=== PATIENT | male | born 1945 | race Caucasian/White ===

== ENCOUNTER 2021-11-23 10:10 | Inpatient (IN) | payer MEDICARE ==
[2021-11-23] MEDS ORDERED: traMADol HCl 50 MG TAB PO PRN (20:41)
[2021-11-23] MEDS ORDERED: Cepastat Lozenges 1 LOZ PO PRN (20:43)
[2021-11-23] MEDS ORDERED: Promethazine HCl 25 MG SUPP PR PRN (20:43)
[2021-11-23] MEDS ORDERED: Senokot S 8.6-50 MG TAB PO PRN (20:43)
[2021-11-23] MEDS ORDERED: Bisacodyl 10 MG SUPP PR PRN (20:43)
[2021-11-23] MEDS ORDERED: Bisacodyl 5 MG TAB PO PRN (20:43)
[2021-11-23] MEDS ORDERED: Ondansetron PF 4 MG/2 ML Vial IVP PRN (20:43)
[2021-11-23] MEDS ORDERED: Loperamide HCl 2 MG CAP PO PRN ×2 (20:43)
[2021-11-23] MEDS ORDERED: Artificial Tear Sol 15 ML BOT EA EYE PRN (20:43)
[2021-11-23] MEDS ORDERED: Guaifenesin DM 100-10/5 ML UDCUP PO PRN (20:43)
[2021-11-23] MEDS ORDERED: Ondansetron ODT 4 MG TAB PO PRN (20:43)
[2021-11-23] MEDS ORDERED: Calcium Carbonate 500 MG ChewTAB PO PRN (20:43)
[2021-11-23] MEDS ORDERED: Acetaminophen 325 MG TAB PO PRN (20:43)
[2021-11-23] MEDS ORDERED: Benzonatate 100 MG CAP PO PRN (20:43)
[2021-11-23] MEDS ORDERED: Acetaminophen 650 MG Suppository PR PRN (20:43)
[2021-11-23] MEDS ORDERED: Senokot S 8.6-50 MG TAB PO SCH (21:00)
[2021-11-23] MEDS: Rosuvastatin 10 MG TAB PO SCH (21:15)
[2021-11-23] MEDS: Valsartan 80 MG TAB PO SCH (21:15)
[2021-11-23] MEDS ORDERED: Ferrous Sulfate 325 MG TAB PO SCH (21:15)
[2021-11-23] MEDS: Donepezil HCl 10 MG TAB PO SCH (21:15)
[2021-11-23] MEDS: Famotidine 20 MG TAB PO SCH (21:15)
[2021-11-23] MEDS: Lisinopril 10 MG TAB PO SCH (21:15)
[2021-11-23] MEDS: traMADol HCl 50 MG TAB PO PRN (21:36)
[2021-11-24] MEDS: Levothyroxine Sodium 50 MCG TAB PO SCH (05:49)
[2021-11-24 06:01] LABS: #Basophils 0.1 thou/uL (0.0-0.2); #Eosinphils 0.6 thou/uL (0.0-0.7); #Lymphocytes 1.1 thou/uL (1.20-3.40); #Monocytes 0.6 thou/uL (0.11-0.59); #Neutrophils 5.8 thou/uL (1.40-6.50); %Basophils 0.6 % (0.0-1.0); %Eosinophils 6.9 % (0.0-10.0); %Lymphocytes 13.8 % (21.0-51.0); %Monocytes 7.5 % (0.0-10.0); %Neutrophils 71.2 % (42.0-75.0); Mean Corpuscular HGB CONC 30.1 g/dL (32.0-36.0); Mean Corpuscular Hemoglobin 29.3 pg (27.0-31.0); Mean Corpuscular Volume 97.4 fL (78.0-98.0); Mean Platelet Volume 7.1 fL (7.4-10.4); Platelet Count 558 thou/uL (130-400); RBC Distribution Width 13.8 % (11.5-14.5); Red Blood Cell (RBC) Count 2.72 mill/uL (4.70-6.10); White Blood Cell (WBC) Count 8.2 thou/uL (4.8-10.8)
[2021-11-24 06:15] LABS: ALT (SGPT) 257 U/L (8-55); AST (SGOT) 206 U/L (5-34); Alkaline Phosphatase 598 U/L (40-110); Anion Gap 13 mmol/L (10-20); BUN (Urea Nitrogen) 11 mg/dL (8.4-25.7); Bilirubin, Total 1.5 mg/dL (0.2-1.2); Calc. Creatinine Clearance 122 mL/min (70-130); Calcium 8.5 mg/dL (7.8-10.44); Carbon Dioxide 25 mmol/L (23-31); Chloride 105 mmol/L (98-107); Globulin 2.3 g/dL (2.4-3.5); Glucose 97 mg/dL (83-110); Potassium 3.4 mmol/L (3.5-5.1); Protein, Total 5.3 g/dL (5.8-8.1); Sodium 140 mmol/L (136-145)
[2021-11-24] MEDS: Aspirin 325 MG TAB PO SCH (08:39)
[2021-11-24] MEDS: Ascorbic Acid 500 mg Chewable Tablet PO SCH ×2 (08:39→17:45)
[2021-11-24] MEDS: Famotidine 20 MG TAB PO SCH ×2 (08:39→20:48)
[2021-11-24] MEDS: Donepezil HCl 10 MG TAB PO SCH (08:39)
[2021-11-24] MEDS: Folic Acid 1 MG TAB PO SCH (08:40)
[2021-11-24] MEDS: Ferrous Sulfate 325 MG TAB PO SCH ×2 (08:40→17:45)
[2021-11-24] MEDS: Escitalopram Oxalate 10 mg Tablet PO SCH (08:40)
[2021-11-24] MEDS: Lisinopril 10 MG TAB PO SCH ×2 (08:43→20:47)
[2021-11-24] MEDS: Enoxaparin Sodium 40 MG/0.4 ML SYRINGE SC SCH (10:08)
[2021-11-24] MEDS: Polyethylene Glycol 3350 17 GM Packet PO SCH (10:09)
[2021-11-24] MEDS: Donepezil HCl 5 MG TAB PO SCH (20:48)
[2021-11-24] MEDS: Rosuvastatin 10 MG TAB PO SCH (20:48)
[2021-11-24] MEDS: traMADol HCl 50 MG TAB PO PRN (20:49)
[2021-11-24] MEDS: Valsartan 80 MG TAB PO SCH (20:49)
[2021-11-25] MEDS: Levothyroxine Sodium 50 MCG TAB PO SCH (05:41)
[2021-11-25] MEDS ORDERED: Escitalopram Oxalate 10 mg Tablet ONE (07:40)
[2021-11-25] MEDS: Ferrous Sulfate 325 MG TAB PO SCH ×2 (08:11→16:51)
[2021-11-25] MEDS: Ascorbic Acid 500 mg Chewable Tablet PO SCH ×2 (08:11→16:51)
[2021-11-25] MEDS: Donepezil HCl 5 MG TAB PO SCH ×2 (08:11→21:04)
[2021-11-25] MEDS: Aspirin 325 MG TAB PO SCH (08:11)
[2021-11-25] MEDS: Enoxaparin Sodium 40 MG/0.4 ML SYRINGE SC SCH (08:12)
[2021-11-25] MEDS: Escitalopram Oxalate 10 mg Tablet PO SCH (08:12)
[2021-11-25] MEDS: Famotidine 20 MG TAB PO SCH ×2 (08:12→21:05)
[2021-11-25] MEDS: Folic Acid 1 MG TAB PO SCH (08:12)
[2021-11-25] MEDS: Lisinopril 10 MG TAB PO SCH ×2 (08:13→21:04)
[2021-11-25] MEDS: Polyethylene Glycol 3350 17 GM Packet PO SCH (08:13)
[2021-11-25] MEDS: Rosuvastatin 10 MG TAB PO SCH (21:05)
[2021-11-25] MEDS: Valsartan 80 MG TAB PO SCH (21:08)
[2021-11-25 22:50] LABS: SARS-CoV-2 PCR by NAA Not Detected (NotDetected)
[2021-11-26] MEDS: traMADol HCl 50 MG TAB PO PRN (03:20)
[2021-11-26] MEDS: Levothyroxine Sodium 50 MCG TAB PO SCH (05:32)
[2021-11-26] MEDS: Polyethylene Glycol 3350 17 GM Packet PO SCH (08:05)
[2021-11-26] MEDS: Enoxaparin Sodium 40 MG/0.4 ML SYRINGE SC SCH (08:05)
[2021-11-26] MEDS: Ascorbic Acid 500 mg Chewable Tablet PO SCH ×2 (08:06→16:49)
[2021-11-26] MEDS: Lisinopril 10 MG TAB PO SCH ×2 (08:06→19:31)
[2021-11-26] MEDS: Aspirin 325 MG TAB PO SCH (08:06)
[2021-11-26] MEDS: Donepezil HCl 5 MG TAB PO SCH ×2 (08:06→19:30)
[2021-11-26] MEDS: Folic Acid 1 MG TAB PO SCH (08:06)
[2021-11-26] MEDS: Ferrous Sulfate 325 MG TAB PO SCH ×2 (08:06→16:49)
[2021-11-26] MEDS: Famotidine 20 MG TAB PO SCH ×2 (08:06→19:31)
[2021-11-26] MEDS: Escitalopram Oxalate 10 mg Tablet PO SCH (08:06)
[2021-11-26] MEDS ORDERED: traMADol HCl 50 MG TAB PO PRN (09:17)
[2021-11-26] MEDS ORDERED: Acetaminophen 650 MG Suppository PR PRN (09:17)
[2021-11-26] MEDS ORDERED: Acetaminophen 325 MG TAB PO PRN (09:17)
[2021-11-26] MEDS ORDERED: Ibuprofen 800 MG TAB PO PRN (09:36)
[2021-11-26] MEDS ORDERED: traMADol HCl 50 MG TAB PO SCH (19:30)
[2021-11-26] MEDS: Valsartan 80 MG TAB PO SCH (19:32)
[2021-11-26] MEDS: Rosuvastatin 10 MG TAB PO SCH (19:32)
[2021-11-27] MEDS: Levothyroxine Sodium 50 MCG TAB PO SCH (05:08)
[2021-11-27] MEDS: Ascorbic Acid 500 mg Chewable Tablet PO SCH ×2 (08:15→17:41)
[2021-11-27] MEDS: Donepezil HCl 5 MG TAB PO SCH ×2 (08:15→20:00)
[2021-11-27] MEDS: Ferrous Sulfate 325 MG TAB PO SCH ×2 (08:15→17:41)
[2021-11-27] MEDS: Escitalopram Oxalate 10 mg Tablet PO SCH (08:16)
[2021-11-27] MEDS: Lisinopril 10 MG TAB PO SCH ×2 (08:16→20:02)
[2021-11-27] MEDS: Aspirin 325 MG TAB PO SCH (08:16)
[2021-11-27] MEDS: Folic Acid 1 MG TAB PO SCH (08:16)
[2021-11-27] MEDS: Enoxaparin Sodium 40 MG/0.4 ML SYRINGE SC SCH (08:16)
[2021-11-27] MEDS: Famotidine 20 MG TAB PO SCH ×2 (08:16→20:00)
[2021-11-27] MEDS: Polyethylene Glycol 3350 17 GM Packet PO SCH (08:17)
[2021-11-27] MEDS: traMADol HCl 50 MG TAB PO PRN (19:59)
[2021-11-27] MEDS: Rosuvastatin 10 MG TAB PO SCH (20:00)
[2021-11-27] MEDS: Valsartan 80 MG TAB PO SCH (20:05)
[2021-11-28] MEDS: Levothyroxine Sodium 50 MCG TAB PO SCH (05:58)
[2021-11-28] MEDS ORDERED: Acetaminophen 650 MG Suppository PR PRN (07:32)
[2021-11-28] MEDS: Famotidine 20 MG TAB PO SCH ×2 (08:20→20:18)
[2021-11-28] MEDS: Aspirin 325 MG TAB PO SCH (08:20)
[2021-11-28] MEDS: Ascorbic Acid 500 mg Chewable Tablet PO SCH ×2 (08:20→17:34)
[2021-11-28] MEDS: Ferrous Sulfate 325 MG TAB PO SCH ×2 (08:20→17:34)
[2021-11-28] MEDS: Escitalopram Oxalate 10 mg Tablet PO SCH (08:21)
[2021-11-28] MEDS: Donepezil HCl 5 MG TAB PO SCH ×2 (08:21→20:18)
[2021-11-28] MEDS: Folic Acid 1 MG TAB PO SCH (08:21)
[2021-11-28] MEDS: Enoxaparin Sodium 40 MG/0.4 ML SYRINGE SC SCH (08:21)
[2021-11-28] MEDS: Lisinopril 10 MG TAB PO SCH ×2 (08:22→20:18)
[2021-11-28] MEDS: Polyethylene Glycol 3350 17 GM Packet PO SCH (08:45)
[2021-11-28] MEDS: Ibuprofen 800 MG TAB PO PRN (10:51)
[2021-11-28] MEDS: traMADol HCl 50 MG TAB PO PRN (20:13)
[2021-11-28] MEDS: Valsartan 80 MG TAB PO SCH (20:18)
[2021-11-28] MEDS: Rosuvastatin 10 MG TAB PO SCH (20:18)
[2021-11-29] MEDS: Levothyroxine Sodium 50 MCG TAB PO SCH (05:23)
[2021-11-29 06:02] LABS: Hemoglobin 8.8 g/dL (14.0-18.0); Mean Corpuscular HGB CONC 29.1 g/dL (32.0-36.0); Mean Corpuscular Volume 99.6 fL (78.0-98.0); Platelet Count 789 thou/uL (130-400); RBC Distribution Width 14.7 % (11.5-14.5); Red Blood Cell (RBC) Count 3.02 mill/uL (4.70-6.10); White Blood Cell (WBC) Count 7.3 thou/uL (4.8-10.8)
[2021-11-29 06:03] LABS: #Basophils 0.1 thou/uL (0.0-0.2); #Eosinphils 0.4 thou/uL (0.0-0.7); #Lymphocytes 1.1 thou/uL (1.20-3.40); #Monocytes 0.7 thou/uL (0.11-0.59); %Basophils 0.8 % (0.0-1.0); %Eosinophils 5.5 % (0.0-10.0); %Lymphocytes 15.4 % (21.0-51.0); %Monocytes 9.5 % (0.0-10.0); %Neutrophils 68.8 % (42.0-75.0); Manual Diff?? NO
[2021-11-29 06:06] LABS: Anion Gap 18 mmol/L (10-20); BUN (Urea Nitrogen) 10 mg/dL (8.4-25.7); Calc. Creatinine Clearance 108 mL/min (70-130); Calcium 8.7 mg/dL (7.8-10.44); Carbon Dioxide 22 mmol/L (23-31); Chloride 107 mmol/L (98-107); Glucose 99 mg/dL (83-110); Potassium 3.6 mmol/L (3.5-5.1); Sodium 143 mmol/L (136-145)
[2021-11-29] MEDS: Aspirin 325 MG TAB PO SCH (08:38)
[2021-11-29] MEDS: Lisinopril 10 MG TAB PO SCH ×2 (08:38→20:19)
[2021-11-29] MEDS: Enoxaparin Sodium 40 MG/0.4 ML SYRINGE SC SCH (08:38)
[2021-11-29] MEDS: Famotidine 20 MG TAB PO SCH ×2 (08:39→20:19)
[2021-11-29] MEDS: Folic Acid 1 MG TAB PO SCH (08:39)
[2021-11-29] MEDS: Ascorbic Acid 500 mg Chewable Tablet PO SCH ×2 (08:40→17:15)
[2021-11-29] MEDS: Donepezil HCl 5 MG TAB PO SCH ×2 (08:40→20:19)
[2021-11-29] MEDS: Escitalopram Oxalate 10 mg Tablet PO SCH (08:40)
[2021-11-29] MEDS: Ferrous Sulfate 325 MG TAB PO SCH ×2 (08:40→17:15)
[2021-11-29] MEDS: Polyethylene Glycol 3350 17 GM Packet PO SCH (09:38)
[2021-11-29] MEDS: Valsartan 80 MG TAB PO SCH (20:18)
[2021-11-29] MEDS: Rosuvastatin 10 MG TAB PO SCH (20:19)
[2021-11-30] MEDS: Levothyroxine Sodium 50 MCG TAB PO SCH (05:45)
[2021-11-30] MEDS: Enoxaparin Sodium 40 MG/0.4 ML SYRINGE SC SCH (08:01)
[2021-11-30] MEDS: Famotidine 20 MG TAB PO SCH ×2 (08:01→20:09)
[2021-11-30] MEDS: Aspirin 325 MG TAB PO SCH (08:02)
[2021-11-30] MEDS: Escitalopram Oxalate 10 mg Tablet PO SCH (08:02)
[2021-11-30] MEDS: Donepezil HCl 5 MG TAB PO SCH ×2 (08:02→20:09)
[2021-11-30] MEDS: Lisinopril 10 MG TAB PO SCH ×2 (08:02→20:09)
[2021-11-30] MEDS: Ferrous Sulfate 325 MG TAB PO SCH ×2 (08:03→17:53)
[2021-11-30] MEDS: Folic Acid 1 MG TAB PO SCH (08:03)
[2021-11-30] MEDS: Ascorbic Acid 500 mg Chewable Tablet PO SCH ×2 (08:03→17:53)
[2021-11-30] MEDS: Polyethylene Glycol 3350 17 GM Packet PO SCH (08:04)
[2021-11-30] MEDS: Ibuprofen 800 MG TAB PO PRN ×2 (08:56→20:13)
[2021-11-30 14:27] LABS: Carbon Dioxide 23 mmol/L (23-31); Chloride 109 mmol/L (98-107); Sodium 146 mmol/L (136-145)
[2021-11-30 14:28] LABS: Anion Gap 18 mmol/L (10-20)
[2021-11-30 14:29] LABS: ALT (SGPT) 43 U/L (8-55); AST (SGOT) 15 U/L (5-34); Albumin 3.7 g/dL (3.4-4.8); Alkaline Phosphatase 433 U/L (40-110); BUN (Urea Nitrogen) 12 mg/dL (8.4-25.7); Bilirubin, Total 0.7 mg/dL (0.2-1.2); Calc. Creatinine Clearance 103 mL/min (70-130); Calcium 8.9 mg/dL (7.8-10.44); Globulin 2.2 g/dL (2.4-3.5); Glucose 119 mg/dL (83-110); Protein, Total 5.9 g/dL (5.8-8.1)
[2021-11-30] MEDS: Valsartan 80 MG TAB PO SCH (20:09)
[2021-11-30] MEDS: Rosuvastatin 10 MG TAB PO SCH (20:09)
[2021-12-01] MEDS: Levothyroxine Sodium 50 MCG TAB PO SCH (05:40)
[2021-12-01 06:24] LABS: ALT (SGPT) 32 U/L (8-55); AST (SGOT) 13 U/L (5-34); Albumin 3.1 g/dL (3.4-4.8); Alkaline Phosphatase 347 U/L (40-110); Anion Gap 16 mmol/L (10-20); BUN (Urea Nitrogen) 18 mg/dL (8.4-25.7); Bilirubin, Total 0.6 mg/dL (0.2-1.2); Calc. Creatinine Clearance 114 mL/min (70-130); Calcium 8.6 mg/dL (7.8-10.44); Chloride 112 mmol/L (98-107); Globulin 1.8 g/dL (2.4-3.5); Glucose 97 mg/dL (83-110); Potassium 3.8 mmol/L (3.5-5.1); Protein, Total 4.9 g/dL (5.8-8.1)
[2021-12-01 06:31] LABS: Carbon Dioxide 24 mmol/L (23-31); Sodium 148 mmol/L (136-145)
[2021-12-01 06:42] LABS: Hemoglobin 8.5 g/dL (14.0-18.0); Mean Corpuscular HGB CONC 28.9 g/dL (32.0-36.0); Mean Corpuscular Hemoglobin 28.6 pg (27.0-31.0); Mean Corpuscular Volume 99.2 fL (78.0-98.0); Red Blood Cell (RBC) Count 2.97 mill/uL (4.70-6.10); White Blood Cell (WBC) Count 8.4 thou/uL (4.8-10.8)
[2021-12-01 06:43] LABS: %Basophils 1.4 % (0.0-1.0); %Eosinophils 4.8 % (0.0-10.0); %Lymphocytes 14.4 % (21.0-51.0); %Neutrophils 73.5 % (42.0-75.0); Manual Diff?? NO; Mean Platelet Volume 6.5 fL (7.4-10.4); Platelet Count 843 thou/uL (130-400)
[2021-12-01 06:44] LABS: #Basophils 0.1 thou/uL (0.0-0.2); #Eosinphils 0.4 thou/uL (0.0-0.7); #Lymphocytes 1.2 thou/uL (1.20-3.40); #Monocytes 0.5 thou/uL (0.11-0.59); #Neutrophils 6.2 thou/uL (1.40-6.50)
[2021-12-01] MEDS: Enoxaparin Sodium 40 MG/0.4 ML SYRINGE SC SCH (08:26)
[2021-12-01] MEDS: Ferrous Sulfate 325 MG TAB PO SCH ×2 (08:28→17:02)
[2021-12-01] MEDS: Aspirin 325 MG TAB PO SCH (08:28)
[2021-12-01] MEDS: Donepezil HCl 5 MG TAB PO SCH ×2 (08:28→20:59)
[2021-12-01] MEDS: Lisinopril 10 MG TAB PO SCH ×2 (08:29→20:59)
[2021-12-01] MEDS: Escitalopram Oxalate 10 mg Tablet PO SCH (08:29)
[2021-12-01] MEDS: Folic Acid 1 MG TAB PO SCH (08:29)
[2021-12-01] MEDS: Famotidine 20 MG TAB PO SCH ×2 (08:29→21:00)
[2021-12-01] MEDS: Ascorbic Acid 500 mg Chewable Tablet PO SCH ×2 (08:29→17:02)
[2021-12-01] MEDS: Ibuprofen 800 MG TAB PO PRN (10:54)
[2021-12-01] MEDS: Acetaminophen 325 MG TAB PO PRN (20:57)
[2021-12-01] MEDS: Valsartan 80 MG TAB PO SCH (21:00)
[2021-12-01] MEDS: Rosuvastatin 10 MG TAB PO SCH (21:00)
[2021-12-02] MEDS: Levothyroxine Sodium 50 MCG TAB PO SCH (06:11)
[2021-12-02] MEDS: Famotidine 20 MG TAB PO SCH ×2 (09:13→20:23)
[2021-12-02] MEDS: Enoxaparin Sodium 40 MG/0.4 ML SYRINGE SC SCH (09:13)
[2021-12-02] MEDS: Folic Acid 1 MG TAB PO SCH (09:13)
[2021-12-02] MEDS: Aspirin 325 MG TAB PO SCH (09:13)
[2021-12-02] MEDS: Donepezil HCl 5 MG TAB PO SCH ×2 (09:14→20:23)
[2021-12-02] MEDS: Ascorbic Acid 500 mg Chewable Tablet PO SCH ×2 (09:14→17:13)
[2021-12-02] MEDS: Escitalopram Oxalate 10 mg Tablet PO SCH (09:14)
[2021-12-02] MEDS: Ferrous Sulfate 325 MG TAB PO SCH ×2 (09:14→17:13)
[2021-12-02] MEDS: Lisinopril 10 MG TAB PO SCH ×2 (09:15→20:23)
[2021-12-02] MEDS ORDERED: Ondansetron ODT 4 MG TAB SL PRN (11:45)
[2021-12-02 18:54] LABS: SARS-CoV-2 PCR by NAA Not Detected (NotDetected)
[2021-12-02] MEDS: Valsartan 80 MG TAB PO SCH (20:22)
[2021-12-02] MEDS: Rosuvastatin 10 MG TAB PO SCH (20:23)
[2021-12-03] MEDS: Levothyroxine Sodium 50 MCG TAB PO SCH (05:51)
[2021-12-03 06:00] LABS: #Basophils 0.1 thou/uL (0.0-0.2); #Eosinphils 0.3 thou/uL (0.0-0.7); #Lymphocytes 1.1 thou/uL (1.20-3.40); #Monocytes 0.6 thou/uL (0.11-0.59); %Basophils 1.1 % (0.0-1.0); %Eosinophils 4.9 % (0.0-10.0); %Monocytes 8.6 % (0.0-10.0); %Neutrophils 70.4 % (42.0-75.0); Hemoglobin 8.7 g/dL (14.0-18.0); Mean Corpuscular HGB CONC 29.3 g/dL (32.0-36.0); Mean Corpuscular Volume 98.9 fL (78.0-98.0); Mean Platelet Volume 6.6 fL (7.4-10.4); Platelet Count 682 thou/uL (130-400); RBC Distribution Width 14.9 % (11.5-14.5); Red Blood Cell (RBC) Count 2.98 mill/uL (4.70-6.10); White Blood Cell (WBC) Count 7.1 thou/uL (4.8-10.8)
[2021-12-03 06:16] LABS: ALT (SGPT) 23 U/L (8-55); AST (SGOT) 11 U/L (5-34); Albumin 3.2 g/dL (3.4-4.8); Alkaline Phosphatase 314 U/L (40-110); Anion Gap 17 mmol/L (10-20); BUN (Urea Nitrogen) 13 mg/dL (8.4-25.7); Bilirubin, Total 0.5 mg/dL (0.2-1.2); Calc. Creatinine Clearance 117 mL/min (70-130); Calcium 8.8 mg/dL (7.8-10.44); Carbon Dioxide 23 mmol/L (23-31); Chloride 109 mmol/L (98-107); Globulin 2.2 g/dL (2.4-3.5); Glucose 99 mg/dL (83-110); Potassium 3.7 mmol/L (3.5-5.1); Protein, Total 5.4 g/dL (5.8-8.1); Sodium 145 mmol/L (136-145)
[2021-12-03] MEDS: Enoxaparin Sodium 40 MG/0.4 ML SYRINGE SC SCH (08:56)
[2021-12-03] MEDS: Lisinopril 10 MG TAB PO SCH ×2 (08:57→20:51)
[2021-12-03] MEDS: Famotidine 20 MG TAB PO SCH ×2 (08:57→20:51)
[2021-12-03] MEDS: Ascorbic Acid 500 mg Chewable Tablet PO SCH ×2 (08:57→16:58)
[2021-12-03] MEDS: Ferrous Sulfate 325 MG TAB PO SCH ×2 (08:57→16:59)
[2021-12-03] MEDS: Aspirin 325 MG TAB PO SCH (08:57)
[2021-12-03] MEDS: Folic Acid 1 MG TAB PO SCH (08:57)
[2021-12-03] MEDS: Escitalopram Oxalate 10 mg Tablet PO SCH (08:58)
[2021-12-03] MEDS: Donepezil HCl 5 MG TAB PO SCH ×2 (08:58→20:51)
[2021-12-03] MEDS: Rosuvastatin 10 MG TAB PO SCH (20:51)
[2021-12-03] MEDS: Valsartan 80 MG TAB PO SCH (20:51)
[2021-12-04] MEDS: Levothyroxine Sodium 50 MCG TAB PO SCH (06:29)
[2021-12-04] MEDS: Enoxaparin Sodium 40 MG/0.4 ML SYRINGE SC SCH (08:23)
[2021-12-04] MEDS: Aspirin 325 MG TAB PO SCH (08:24)
[2021-12-04] MEDS: Ascorbic Acid 500 mg Chewable Tablet PO SCH ×2 (08:25→17:01)
[2021-12-04] MEDS: Famotidine 20 MG TAB PO SCH ×2 (08:25→21:25)
[2021-12-04] MEDS: Donepezil HCl 5 MG TAB PO SCH ×2 (08:25→21:24)
[2021-12-04] MEDS: Escitalopram Oxalate 10 mg Tablet PO SCH (08:26)
[2021-12-04] MEDS: Ferrous Sulfate 325 MG TAB PO SCH ×2 (08:26→17:01)
[2021-12-04] MEDS: Folic Acid 1 MG TAB PO SCH (08:26)
[2021-12-04] MEDS: Amlodipine 5 MG TAB PO SCH (08:47)
[2021-12-04] MEDS: Valsartan 80 MG TAB PO SCH (21:24)
[2021-12-04] MEDS: Rosuvastatin 10 MG TAB PO SCH (21:24)
[2021-12-05] MEDS: Levothyroxine Sodium 50 MCG TAB PO SCH (06:22)
[2021-12-05 06:23] LABS: #Basophils 0.1 thou/uL (0.0-0.2); #Eosinphils 0.4 thou/uL (0.0-0.7); #Monocytes 0.6 thou/uL (0.11-0.59); %Basophils 1.4 % (0.0-1.0); %Eosinophils 5.3 % (0.0-10.0); %Monocytes 8.7 % (0.0-10.0); %Neutrophils 70.8 % (42.0-75.0); Mean Corpuscular HGB CONC 29.4 g/dL (32.0-36.0); Mean Corpuscular Hemoglobin 29.1 pg (27.0-31.0); Mean Corpuscular Volume 98.8 fL (78.0-98.0); Mean Platelet Volume 7.2 fL (7.4-10.4); Platelet Count 688 thou/uL (130-400); Red Blood Cell (RBC) Count 3.45 mill/uL (4.70-6.10)
[2021-12-05 06:42] LABS: ALT (SGPT) 22 U/L (8-55); AST (SGOT) 23 U/L (5-34); Albumin 3.3 g/dL (3.4-4.8); Alkaline Phosphatase 334 U/L (40-110); Anion Gap 19 mmol/L (10-20); BUN (Urea Nitrogen) 11 mg/dL (8.4-25.7); Bilirubin, Total 0.4 mg/dL (0.2-1.2); Calc. Creatinine Clearance 122 mL/min (70-130); Carbon Dioxide 21 mmol/L (23-31); Chloride 110 mmol/L (98-107); Globulin 2.7 g/dL (2.4-3.5); Glucose 90 mg/dL (83-110); Potassium 5.2 mmol/L (3.5-5.1); Sodium 145 mmol/L (136-145)
[2021-12-05] MEDS: Enoxaparin Sodium 40 MG/0.4 ML SYRINGE SC SCH (08:08)
[2021-12-05] MEDS: Ferrous Sulfate 325 MG TAB PO SCH ×2 (08:08→17:52)
[2021-12-05] MEDS: Aspirin 325 MG TAB PO SCH (08:08)
[2021-12-05] MEDS: Famotidine 20 MG TAB PO SCH ×2 (08:08→21:27)
[2021-12-05] MEDS: Ascorbic Acid 500 mg Chewable Tablet PO SCH ×2 (08:08→17:52)
[2021-12-05] MEDS: Folic Acid 1 MG TAB PO SCH (08:09)
[2021-12-05] MEDS: Donepezil HCl 5 MG TAB PO SCH ×2 (08:09→21:27)
[2021-12-05] MEDS: Amlodipine 5 MG TAB PO SCH (08:09)
[2021-12-05] MEDS: Escitalopram Oxalate 10 mg Tablet PO SCH (08:09)
[2021-12-05 12:32] LABS: Anion Gap 17 mmol/L (10-20); BUN (Urea Nitrogen) 14 mg/dL (8.4-25.7); Calc. Creatinine Clearance 115 mL/min (70-130); Calcium 9.1 mg/dL (7.8-10.44); Carbon Dioxide 23 mmol/L (23-31); Chloride 108 mmol/L (98-107); Glucose 114 mg/dL (83-110); Sodium 144 mmol/L (136-145)
[2021-12-05] MEDS: Valsartan 80 MG TAB PO SCH (21:26)
[2021-12-05] MEDS: Rosuvastatin 10 MG TAB PO SCH (21:27)
[2021-12-06] MEDS: Levothyroxine Sodium 50 MCG TAB PO SCH (05:44)
[2021-12-06] MEDS: Donepezil HCl 5 MG TAB PO SCH ×2 (07:55→21:20)
[2021-12-06] MEDS: Aspirin 325 MG TAB PO SCH (07:55)
[2021-12-06] MEDS: Ascorbic Acid 500 mg Chewable Tablet PO SCH ×2 (07:55→16:43)
[2021-12-06] MEDS: Enoxaparin Sodium 40 MG/0.4 ML SYRINGE SC SCH (07:55)
[2021-12-06] MEDS: Famotidine 20 MG TAB PO SCH ×2 (07:56→21:22)
[2021-12-06] MEDS: Ferrous Sulfate 325 MG TAB PO SCH ×2 (07:56→16:43)
[2021-12-06] MEDS: Escitalopram Oxalate 10 mg Tablet PO SCH (07:56)
[2021-12-06] MEDS: Folic Acid 1 MG TAB PO SCH (07:57)
[2021-12-06] MEDS: Amlodipine 5 MG TAB PO SCH (07:57)
[2021-12-06] MEDS: Acetaminophen 325 MG TAB PO PRN (08:04)
[2021-12-06] MEDS: Rosuvastatin 10 MG TAB PO SCH (21:22)
[2021-12-06] MEDS: Valsartan 80 MG TAB PO SCH (21:22)
[2021-12-07 06:08] LABS: ALT (SGPT) 22 U/L (8-55); AST (SGOT) 12 U/L (5-34); Albumin 3.5 g/dL (3.4-4.8); Alkaline Phosphatase 338 U/L (40-110); Anion Gap 15 mmol/L (10-20); BUN (Urea Nitrogen) 13 mg/dL (8.4-25.7); Bilirubin, Total 0.5 mg/dL (0.2-1.2); Calc. Creatinine Clearance 112 mL/min (70-130); Calcium 9.1 mg/dL (7.8-10.44); Carbon Dioxide 23 mmol/L (23-31); Chloride 109 mmol/L (98-107); Globulin 2.2 g/dL (2.4-3.5); Glucose 97 mg/dL (83-110); Potassium 3.9 mmol/L (3.5-5.1); Protein, Total 5.7 g/dL (5.8-8.1); Sodium 143 mmol/L (136-145)
[2021-12-07] MEDS: Levothyroxine Sodium 50 MCG TAB PO SCH (06:23)
[2021-12-07 06:29] LABS: #Basophils 0.1 thou/uL (0.0-0.2); #Eosinphils 0.4 thou/uL (0.0-0.7); #Lymphocytes 1.3 thou/uL (1.20-3.40); #Monocytes 0.5 thou/uL (0.11-0.59); #Neutrophils 5.6 thou/uL (1.40-6.50); %Basophils 1.1 % (0.0-1.0); %Eosinophils 4.9 % (0.0-10.0); %Lymphocytes 16.1 % (21.0-51.0); %Monocytes 6.6 % (0.0-10.0); %Neutrophils 71.3 % (42.0-75.0); Hemoglobin 10.1 g/dL (14.0-18.0); Mean Corpuscular HGB CONC 29.3 g/dL (32.0-36.0); Mean Corpuscular Hemoglobin 28.8 pg (27.0-31.0); Mean Corpuscular Volume 98.4 fL (78.0-98.0); Mean Platelet Volume 7.3 fL (7.4-10.4); Platelet Count 571 thou/uL (130-400); RBC Distribution Width 15.1 % (11.5-14.5); Red Blood Cell (RBC) Count 3.49 mill/uL (4.70-6.10); White Blood Cell (WBC) Count 7.8 thou/uL (4.8-10.8)
[2021-12-07] MEDS: Amlodipine 5 MG TAB PO SCH (09:16)
[2021-12-07] MEDS: Ascorbic Acid 500 mg Chewable Tablet PO SCH ×2 (09:16→17:20)
[2021-12-07] MEDS: Aspirin 325 MG TAB PO SCH (09:17)
[2021-12-07] MEDS: Folic Acid 1 MG TAB PO SCH (09:17)
[2021-12-07] MEDS: Ferrous Sulfate 325 MG TAB PO SCH ×2 (09:17→17:20)
[2021-12-07] MEDS: Escitalopram Oxalate 10 mg Tablet PO SCH (09:17)
[2021-12-07] MEDS: Famotidine 20 MG TAB PO SCH ×2 (09:17→20:52)
[2021-12-07] MEDS: Donepezil HCl 5 MG TAB PO SCH ×2 (09:17→20:52)
[2021-12-07] MEDS: Enoxaparin Sodium 40 MG/0.4 ML SYRINGE SC SCH (09:18)
[2021-12-07] MEDS: Rosuvastatin 10 MG TAB PO SCH (20:52)
[2021-12-07] MEDS: Valsartan 80 MG TAB PO SCH (20:55)
[2021-12-08] MEDS: Levothyroxine Sodium 50 MCG TAB PO SCH (06:27)
[2021-12-08] MEDS: Aspirin 325 MG TAB PO SCH (09:25)
[2021-12-08] MEDS: Ascorbic Acid 500 mg Chewable Tablet PO SCH ×2 (09:26→17:14)
[2021-12-08] MEDS: Amlodipine 5 MG TAB PO SCH (09:26)
[2021-12-08] MEDS: Donepezil HCl 5 MG TAB PO SCH ×2 (09:26→20:40)
[2021-12-08] MEDS: Ferrous Sulfate 325 MG TAB PO SCH ×2 (09:27→17:14)
[2021-12-08] MEDS: Famotidine 20 MG TAB PO SCH ×2 (09:27→20:40)
[2021-12-08] MEDS: Escitalopram Oxalate 10 mg Tablet PO SCH (09:27)
[2021-12-08] MEDS: Enoxaparin Sodium 40 MG/0.4 ML SYRINGE SC SCH (09:27)
[2021-12-08] MEDS: Folic Acid 1 MG TAB PO SCH (09:28)
[2021-12-08] MEDS: Valsartan 80 MG TAB PO SCH (20:40)
[2021-12-08] MEDS: Rosuvastatin 10 MG TAB PO SCH (20:40)
[2021-12-09] MEDS: Levothyroxine Sodium 50 MCG TAB PO SCH (05:36)
[2021-12-09 07:01] LABS: ALT (SGPT) 22 U/L (8-55); AST (SGOT) 15 U/L (5-34); Albumin 3.6 g/dL (3.4-4.8); Alkaline Phosphatase 331 U/L (40-110); Anion Gap 17 mmol/L (10-20); BUN (Urea Nitrogen) 12 mg/dL (8.4-25.7); Bilirubin, Total 0.5 mg/dL (0.2-1.2); Calc. Creatinine Clearance 118 mL/min (70-130); Calcium 9.4 mg/dL (7.8-10.44); Carbon Dioxide 21 mmol/L (23-31); Chloride 108 mmol/L (98-107); Globulin 2.4 g/dL (2.4-3.5); Glucose 91 mg/dL (83-110); Sodium 142 mmol/L (136-145)
[2021-12-09] MEDS: Escitalopram Oxalate 10 mg Tablet PO SCH (09:37)
[2021-12-09] MEDS: Ferrous Sulfate 325 MG TAB PO SCH ×2 (09:37→17:39)
[2021-12-09] MEDS: Ascorbic Acid 500 mg Chewable Tablet PO SCH ×2 (09:37→17:40)
[2021-12-09] MEDS: Famotidine 20 MG TAB PO SCH ×2 (09:37→20:41)
[2021-12-09] MEDS: Amlodipine 5 MG TAB PO SCH (09:37)
[2021-12-09] MEDS: Aspirin 325 MG TAB PO SCH (09:37)
[2021-12-09] MEDS: Enoxaparin Sodium 40 MG/0.4 ML SYRINGE SC SCH (09:38)
[2021-12-09] MEDS: Donepezil HCl 5 MG TAB PO SCH ×2 (09:38→20:41)
[2021-12-09] MEDS: Folic Acid 1 MG TAB PO SCH (09:38)
[2021-12-09 16:01] LABS: SARS-CoV-2 PCR by NAA Not Detected (NotDetected)
[2021-12-09] MEDS: Valsartan 80 MG TAB PO SCH (20:41)
[2021-12-09] MEDS: Rosuvastatin 10 MG TAB PO SCH (20:41)
[2021-12-10] MEDS: Levothyroxine Sodium 50 MCG TAB PO SCH (05:17)
[2021-12-10] MEDS: Amlodipine 5 MG TAB PO SCH (08:48)
[2021-12-10] MEDS: Ferrous Sulfate 325 MG TAB PO SCH ×2 (08:48→17:20)
[2021-12-10] MEDS: Aspirin 325 MG TAB PO SCH (08:48)
[2021-12-10] MEDS: Ascorbic Acid 500 mg Chewable Tablet PO SCH ×2 (08:49→17:20)
[2021-12-10] MEDS: Donepezil HCl 5 MG TAB PO SCH ×2 (08:49→21:27)
[2021-12-10] MEDS: Famotidine 20 MG TAB PO SCH ×2 (08:49→21:27)
[2021-12-10] MEDS: Folic Acid 1 MG TAB PO SCH (08:49)
[2021-12-10] MEDS: Escitalopram Oxalate 10 mg Tablet PO SCH (08:50)
[2021-12-10] MEDS: Enoxaparin Sodium 40 MG/0.4 ML SYRINGE SC SCH (08:50)
[2021-12-10] MEDS: Valsartan 80 MG TAB PO SCH (21:26)
[2021-12-10] MEDS: Rosuvastatin 10 MG TAB PO SCH (21:27)
[2021-12-10] MEDS: traMADol HCl 50 MG TAB PO PRN (21:27)
[2021-12-11] MEDS: Levothyroxine Sodium 50 MCG TAB PO SCH (06:02)
[2021-12-11] MEDS: Ferrous Sulfate 325 MG TAB PO SCH ×2 (08:52→16:59)
[2021-12-11] MEDS: Ascorbic Acid 500 mg Chewable Tablet PO SCH ×2 (08:52→16:59)
[2021-12-11] MEDS: Amlodipine 5 MG TAB PO SCH (08:52)
[2021-12-11] MEDS: Famotidine 20 MG TAB PO SCH ×2 (08:53→21:12)
[2021-12-11] MEDS: Donepezil HCl 5 MG TAB PO SCH ×2 (08:53→21:12)
[2021-12-11] MEDS: Enoxaparin Sodium 40 MG/0.4 ML SYRINGE SC SCH (08:53)
[2021-12-11] MEDS: Folic Acid 1 MG TAB PO SCH (08:53)
[2021-12-11] MEDS: Escitalopram Oxalate 10 mg Tablet PO SCH (08:53)
[2021-12-11] MEDS: Aspirin 325 MG TAB PO SCH (08:53)
[2021-12-11] MEDS: Valsartan 80 MG TAB PO SCH (21:12)
[2021-12-11] MEDS: Rosuvastatin 10 MG TAB PO SCH (21:12)
[2021-12-11] MEDS: traMADol HCl 50 MG TAB PO PRN (21:15)
[2021-12-12] MEDS: Levothyroxine Sodium 50 MCG TAB PO SCH (05:23)
[2021-12-12] MEDS: Donepezil HCl 5 MG TAB PO SCH ×2 (09:54→20:57)
[2021-12-12] MEDS: Aspirin 325 MG TAB PO SCH (09:54)
[2021-12-12] MEDS: Ascorbic Acid 500 mg Chewable Tablet PO SCH ×2 (09:55→17:10)
[2021-12-12] MEDS: Famotidine 20 MG TAB PO SCH ×2 (09:55→20:57)
[2021-12-12] MEDS: Escitalopram Oxalate 10 mg Tablet PO SCH (09:55)
[2021-12-12] MEDS: Folic Acid 1 MG TAB PO SCH (09:55)
[2021-12-12] MEDS: Ferrous Sulfate 325 MG TAB PO SCH ×2 (09:55→17:10)
[2021-12-12] MEDS: Enoxaparin Sodium 40 MG/0.4 ML SYRINGE SC SCH (09:56)
[2021-12-12] MEDS: Amlodipine 5 MG TAB PO SCH (09:56)
[2021-12-12] MEDS: Valsartan 80 MG TAB PO SCH (20:56)
[2021-12-12] MEDS: Rosuvastatin 10 MG TAB PO SCH (20:57)
[2021-12-12] MEDS: traMADol HCl 50 MG TAB PO PRN (21:06)
[2021-12-13] MEDS: Levothyroxine Sodium 50 MCG TAB PO SCH (05:33)
[2021-12-13] MEDS: Famotidine 20 MG TAB PO SCH ×2 (09:17→21:12)
[2021-12-13] MEDS: Amlodipine 5 MG TAB PO SCH (09:17)
[2021-12-13] MEDS: Aspirin 325 MG TAB PO SCH (09:17)
[2021-12-13] MEDS: Ferrous Sulfate 325 MG TAB PO SCH ×2 (09:17→17:37)
[2021-12-13] MEDS: Escitalopram Oxalate 10 mg Tablet PO SCH (09:17)
[2021-12-13] MEDS: Folic Acid 1 MG TAB PO SCH (09:17)
[2021-12-13] MEDS: Enoxaparin Sodium 40 MG/0.4 ML SYRINGE SC SCH (09:17)
[2021-12-13] MEDS: Donepezil HCl 5 MG TAB PO SCH ×2 (09:17→21:12)
[2021-12-13] MEDS: Ascorbic Acid 500 mg Chewable Tablet PO SCH ×2 (09:17→17:37)
[2021-12-13] MEDS: Rosuvastatin 10 MG TAB PO SCH (21:12)
[2021-12-13] MEDS: Valsartan 80 MG TAB PO SCH (21:12)
[2021-12-14] MEDS: Levothyroxine Sodium 50 MCG TAB PO SCH (05:27)
[2021-12-14] MEDS: Aspirin 325 MG TAB PO SCH (08:59)
[2021-12-14] MEDS: Enoxaparin Sodium 40 MG/0.4 ML SYRINGE SC SCH (08:59)
[2021-12-14] MEDS: Amlodipine 5 MG TAB PO SCH (08:59)
[2021-12-14] MEDS: Famotidine 20 MG TAB PO SCH ×2 (09:00→20:23)
[2021-12-14] MEDS: Donepezil HCl 5 MG TAB PO SCH ×2 (09:00→20:23)
[2021-12-14] MEDS: Ferrous Sulfate 325 MG TAB PO SCH ×2 (09:00→17:37)
[2021-12-14] MEDS: Ascorbic Acid 500 mg Chewable Tablet PO SCH ×2 (09:00→17:37)
[2021-12-14] MEDS: Escitalopram Oxalate 10 mg Tablet PO SCH (09:00)
[2021-12-14] MEDS: Folic Acid 1 MG TAB PO SCH (09:00)
[2021-12-14] MEDS: Ibuprofen 800 MG TAB PO PRN (10:15)
[2021-12-14] MEDS: Rosuvastatin 10 MG TAB PO SCH (20:23)
[2021-12-14] MEDS: Valsartan 80 MG TAB PO SCH (20:23)
[2021-12-15] MEDS: Levothyroxine Sodium 50 MCG TAB PO SCH (05:28)
[2021-12-15 06:16] LABS: Hemoglobin 11.5 g/dL (14.0-18.0); Platelet Count 310 thou/uL (130-400)
[2021-12-15 06:24] LABS: Calc. Creatinine Clearance 114 mL/min (70-130)
[2021-12-15] MEDS: Ferrous Sulfate 325 MG TAB PO SCH ×2 (08:18→17:04)
[2021-12-15] MEDS: Aspirin 325 MG TAB PO SCH (08:18)
[2021-12-15] MEDS: Enoxaparin Sodium 40 MG/0.4 ML SYRINGE SC SCH (08:18)
[2021-12-15] MEDS: Famotidine 20 MG TAB PO SCH ×2 (08:19→20:48)
[2021-12-15] MEDS: Ascorbic Acid 500 mg Chewable Tablet PO SCH ×2 (08:19→17:04)
[2021-12-15] MEDS: Folic Acid 1 MG TAB PO SCH (08:19)
[2021-12-15] MEDS: Donepezil HCl 5 MG TAB PO SCH ×2 (08:19→20:48)
[2021-12-15] MEDS: Escitalopram Oxalate 10 mg Tablet PO SCH (08:19)
[2021-12-15] MEDS: Amlodipine 5 MG TAB PO SCH (10:07)
[2021-12-15] MEDS: Acetaminophen 325 MG TAB PO PRN (11:59)
[2021-12-15] MEDS: Valsartan 80 MG TAB PO SCH (20:48)
[2021-12-15] MEDS: Rosuvastatin 10 MG TAB PO SCH (20:48)
[2021-12-16] MEDS: Levothyroxine Sodium 50 MCG TAB PO SCH (06:10)
[2021-12-16] MEDS: Aspirin 325 MG TAB PO SCH (08:31)
[2021-12-16] MEDS: Enoxaparin Sodium 40 MG/0.4 ML SYRINGE SC SCH (08:31)
[2021-12-16] MEDS: Donepezil HCl 5 MG TAB PO SCH ×2 (08:32→21:15)
[2021-12-16] MEDS: Amlodipine 5 MG TAB PO SCH (08:32)
[2021-12-16] MEDS: Folic Acid 1 MG TAB PO SCH (08:32)
[2021-12-16] MEDS: Escitalopram Oxalate 10 mg Tablet PO SCH (08:32)
[2021-12-16] MEDS: Famotidine 20 MG TAB PO SCH ×2 (08:35→21:14)
[2021-12-16] MEDS: Ascorbic Acid 500 mg Chewable Tablet PO SCH ×2 (08:35→17:15)
[2021-12-16] MEDS: Ferrous Sulfate 325 MG TAB PO SCH ×2 (08:36→17:15)
[2021-12-16] MEDS: Carbidopa/Levodopa 25-100 mg Tablet PO SCH ×2 (14:10→21:15)
[2021-12-16 18:35] LABS: SARS-CoV-2 PCR by NAA Not Detected (NotDetected)
[2021-12-16] MEDS: Valsartan 80 MG TAB PO SCH (21:14)
[2021-12-16] MEDS: Rosuvastatin 10 MG TAB PO SCH (21:15)
[2021-12-17] MEDS: Levothyroxine Sodium 50 MCG TAB PO SCH (05:57)
[2021-12-17] MEDS: Folic Acid 1 MG TAB PO SCH (08:24)
[2021-12-17] MEDS: Ascorbic Acid 500 mg Chewable Tablet PO SCH ×2 (08:24→16:57)
[2021-12-17] MEDS: Enoxaparin Sodium 40 MG/0.4 ML SYRINGE SC SCH (08:24)
[2021-12-17] MEDS: Aspirin 325 MG TAB PO SCH (08:24)
[2021-12-17] MEDS: Ferrous Sulfate 325 MG TAB PO SCH ×2 (08:24→16:57)
[2021-12-17] MEDS: Famotidine 20 MG TAB PO SCH ×2 (08:24→20:50)
[2021-12-17] MEDS: Amlodipine 5 MG TAB PO SCH (08:25)
[2021-12-17] MEDS: Donepezil HCl 5 MG TAB PO SCH ×2 (08:25→20:50)
[2021-12-17] MEDS: Carbidopa/Levodopa 25-100 mg Tablet PO SCH ×3 (08:25→20:50)
[2021-12-17] MEDS: Escitalopram Oxalate 10 mg Tablet PO SCH (08:25)
[2021-12-17 10:44] LABS: Anion Gap 18 mmol/L (10-20); BUN (Urea Nitrogen) 9 mg/dL (8.4-25.7); Calc. Creatinine Clearance 103 mL/min (70-130); Carbon Dioxide 26 mmol/L (23-31); Chloride 105 mmol/L (98-107); Glucose 105 mg/dL (83-110); Potassium 3.9 mmol/L (3.5-5.1); Sodium 145 mmol/L (136-145)
[2021-12-17 11:21] LABS: #Basophils 0.1 thou/uL (0.0-0.2); #Eosinphils 0.4 thou/uL (0.0-0.7); #Monocytes 0.5 thou/uL (0.11-0.59); #Neutrophils 5.1 thou/uL (1.40-6.50); %Basophils 1.1 % (0.0-1.0); %Eosinophils 5.3 % (0.0-10.0); %Lymphocytes 14.7 % (21.0-51.0); %Monocytes 7.1 % (0.0-10.0); %Neutrophils 71.7 % (42.0-75.0); Hemoglobin 12.1 g/dL (14.0-18.0); Mean Corpuscular Hemoglobin 28.6 pg (27.0-31.0); Mean Corpuscular Volume 98.6 fL (78.0-98.0); Mean Platelet Volume 8.4 fL (7.4-10.4); Platelet Count 335 thou/uL (130-400); RBC Distribution Width 14.4 % (11.5-14.5); Red Blood Cell (RBC) Count 4.24 mill/uL (4.70-6.10); White Blood Cell (WBC) Count 7.1 thou/uL (4.8-10.8)
[2021-12-17] MEDS ORDERED: OLANZapine 5 MG TAB PO SCH (14:00)
[2021-12-17] MEDS: Valsartan 80 MG TAB PO SCH (20:49)
[2021-12-17] MEDS: Rosuvastatin 10 MG TAB PO SCH (20:50)
[2021-12-18] MEDS: Levothyroxine Sodium 50 MCG TAB PO SCH (06:10)
[2021-12-18 06:29] VITALS: BMI 28.5
[2021-12-18] MEDS: Aspirin 325 MG TAB PO SCH (08:37)
[2021-12-18] MEDS: Donepezil HCl 5 MG TAB PO SCH ×2 (08:37→20:27)
[2021-12-18] MEDS: Ascorbic Acid 500 mg Chewable Tablet PO SCH ×2 (08:37→17:17)
[2021-12-18] MEDS: Famotidine 20 MG TAB PO SCH ×2 (08:37→20:26)
[2021-12-18] MEDS: Enoxaparin Sodium 40 MG/0.4 ML SYRINGE SC SCH (08:37)
[2021-12-18] MEDS: Ferrous Sulfate 325 MG TAB PO SCH ×2 (08:37→17:17)
[2021-12-18] MEDS: Folic Acid 1 MG TAB PO SCH (08:37)
[2021-12-18] MEDS: Carbidopa/Levodopa 25-100 mg Tablet PO SCH ×3 (08:37→20:27)
[2021-12-18] MEDS: Amlodipine 5 MG TAB PO SCH (08:37)
[2021-12-18] MEDS: Escitalopram Oxalate 10 mg Tablet PO SCH (08:37)
[2021-12-18] MEDS: Valsartan 80 MG TAB PO SCH (20:26)
[2021-12-18] MEDS: Rosuvastatin 10 MG TAB PO SCH (20:26)
[2021-12-19] MEDS: Levothyroxine Sodium 50 MCG TAB PO SCH (05:21)
[2021-12-19 06:27] LABS: #Basophils 0.1 thou/uL (0.0-0.2); #Eosinphils 0.4 thou/uL (0.0-0.7); #Lymphocytes 1.7 thou/uL (1.20-3.40); #Monocytes 0.5 thou/uL (0.11-0.59); #Neutrophils 4.5 thou/uL (1.40-6.50); %Basophils 1.4 % (0.0-1.0); %Eosinophils 6.1 % (0.0-10.0); %Lymphocytes 23.2 % (21.0-51.0); %Monocytes 7.2 % (0.0-10.0); %Neutrophils 62.1 % (42.0-75.0); Hemoglobin 12.3 g/dL (14.0-18.0); Mean Corpuscular HGB CONC 29.3 g/dL (32.0-36.0); Mean Platelet Volume 8.1 fL (7.4-10.4); Platelet Count 304 thou/uL (130-400); RBC Distribution Width 14.6 % (11.5-14.5); Red Blood Cell (RBC) Count 4.26 mill/uL (4.70-6.10); White Blood Cell (WBC) Count 7.2 thou/uL (4.8-10.8)
[2021-12-19 06:36] LABS: Anion Gap 18 mmol/L (10-20); BUN (Urea Nitrogen) 14 mg/dL (8.4-25.7); Calc. Creatinine Clearance 120 mL/min (70-130); Calcium 9.8 mg/dL (7.8-10.44); Carbon Dioxide 23 mmol/L (23-31); Chloride 106 mmol/L (98-107); Glucose 86 mg/dL (83-110); Potassium 3.8 mmol/L (3.5-5.1); Sodium 143 mmol/L (136-145)
[2021-12-19] MEDS: Aspirin 325 MG TAB PO SCH (09:07)
[2021-12-19] MEDS: Folic Acid 1 MG TAB PO SCH (09:07)
[2021-12-19] MEDS: Escitalopram Oxalate 10 mg Tablet PO SCH (09:07)
[2021-12-19] MEDS: Enoxaparin Sodium 40 MG/0.4 ML SYRINGE SC SCH (09:08)
[2021-12-19] MEDS: Donepezil HCl 5 MG TAB PO SCH ×2 (09:08→20:21)
[2021-12-19] MEDS: Carbidopa/Levodopa 25-100 mg Tablet PO SCH ×3 (09:08→20:21)
[2021-12-19] MEDS: Ferrous Sulfate 325 MG TAB PO SCH ×2 (09:08→17:27)
[2021-12-19] MEDS: Ascorbic Acid 500 mg Chewable Tablet PO SCH ×2 (09:08→17:27)
[2021-12-19] MEDS: Famotidine 20 MG TAB PO SCH ×2 (09:09→20:20)
[2021-12-19] MEDS: Amlodipine 5 MG TAB PO SCH (10:18)
[2021-12-19] MEDS: Valsartan 80 MG TAB PO SCH (20:20)
[2021-12-19] MEDS: Rosuvastatin 10 MG TAB PO SCH (20:20)
[2021-12-19] MEDS: Acetaminophen 325 MG TAB PO PRN (20:21)
[2021-12-20] MEDS: Levothyroxine Sodium 50 MCG TAB PO SCH (05:36)
[2021-12-20] MEDS: Enoxaparin Sodium 40 MG/0.4 ML SYRINGE SC SCH (08:33)
[2021-12-20] MEDS: Folic Acid 1 MG TAB PO SCH (08:34)
[2021-12-20] MEDS: Famotidine 20 MG TAB PO SCH ×2 (08:34→21:07)
[2021-12-20] MEDS: Ferrous Sulfate 325 MG TAB PO SCH ×2 (08:34→16:55)
[2021-12-20] MEDS: Escitalopram Oxalate 10 mg Tablet PO SCH (08:34)
[2021-12-20] MEDS: Ascorbic Acid 500 mg Chewable Tablet PO SCH ×2 (08:36→16:55)
[2021-12-20] MEDS: Aspirin 325 MG TAB PO SCH (08:36)
[2021-12-20] MEDS: Donepezil HCl 5 MG TAB PO SCH ×2 (08:36→21:07)
[2021-12-20] MEDS: Carbidopa/Levodopa 25-100 mg Tablet PO SCH ×3 (08:36→21:06)
[2021-12-20] MEDS: Amlodipine 5 MG TAB PO SCH (10:30)
[2021-12-20] MEDS: Acetaminophen 325 MG TAB PO PRN (10:35)
[2021-12-20] MEDS: Rosuvastatin 10 MG TAB PO SCH (21:06)
[2021-12-20] MEDS: Valsartan 80 MG TAB PO SCH (21:07)
[2021-12-21] MEDS: Levothyroxine Sodium 50 MCG TAB PO SCH (06:15)
[2021-12-21 06:41] LABS: Hemoglobin 12.4 g/dL (14.0-18.0); Mean Corpuscular HGB CONC 30.6 g/dL (32.0-36.0); Mean Corpuscular Hemoglobin 29.9 pg (27.0-31.0); Mean Corpuscular Volume 97.7 fL (78.0-98.0); Mean Platelet Volume 7.6 fL (7.4-10.4); Platelet Count 367 thou/uL (130-400); RBC Distribution Width 14.5 % (11.5-14.5); Red Blood Cell (RBC) Count 4.16 mill/uL (4.70-6.10); White Blood Cell (WBC) Count 8.7 thou/uL (4.8-10.8)
[2021-12-21 06:44] LABS: #Basophils 0.1 thou/uL (0.0-0.2); #Eosinphils 0.6 thou/uL (0.0-0.7); #Lymphocytes 1.6 thou/uL (1.20-3.40); #Monocytes 0.8 thou/uL (0.11-0.59); #Neutrophils 5.6 thou/uL (1.40-6.50); %Basophils 1.1 % (0.0-1.0); %Eosinophils 7.2 % (0.0-10.0); %Lymphocytes 18.6 % (21.0-51.0); %Monocytes 8.7 % (0.0-10.0); %Neutrophils 64.4 % (42.0-75.0)
[2021-12-21] MEDS: Aspirin 325 MG TAB PO SCH (07:52)
[2021-12-21] MEDS: Ascorbic Acid 500 mg Chewable Tablet PO SCH (07:52)
[2021-12-21] MEDS: Donepezil HCl 5 MG TAB PO SCH (07:52)
[2021-12-21] MEDS: Famotidine 20 MG TAB PO SCH (07:52)
[2021-12-21] MEDS: Folic Acid 1 MG TAB PO SCH (07:52)
[2021-12-21] MEDS: Escitalopram Oxalate 10 mg Tablet PO SCH (07:53)
[2021-12-21] MEDS: Carbidopa/Levodopa 25-100 mg Tablet PO SCH (07:53)
[2021-12-21] MEDS: Ferrous Sulfate 325 MG TAB PO SCH (07:53)
[2021-12-21] MEDS: Enoxaparin Sodium 40 MG/0.4 ML SYRINGE SC SCH (07:53)
[2021-12-21] MEDS: Amlodipine 5 MG TAB PO SCH (07:55)
[2021-12-21 07:59] VITALS: BP 138/71
[2021-12-21 08:48] VITALS: TEMP 96
== END 2021-12-21 08:40 | DRG 57 ==
LOC: NAV ACUTE 18:17
PROVIDERS: ADMIT Family Medicine; ATTEND Family Medicine
DX: G20 Parkinson's disease (principal); F33.0 Major depressive disorder, recurrent, mild; F05 Delirium due to known physiological condition; E87.1 Hypo-osmolality and hyponatremia; F02.81 Dementia in other diseases classified elsewhere, unspecified severity, with behavioral disturbance; M97.01XD Periprosthetic fracture around internal prosthetic right hip joint, subsequent encounter; W19.XXXD Unspecified fall, subsequent encounter; E78.5 Hyperlipidemia, unspecified; I10 Essential (primary) hypertension; Z96.641 Presence of right artificial hip joint; F41.8 Other specified anxiety disorders; E78.2 Mixed hyperlipidemia; G47.00 Insomnia, unspecified; R00.1 Bradycardia, unspecified; R19.7 Diarrhea, unspecified; Z20.822 Contact with and (suspected) exposure to COVID-19; E87.6 Hypokalemia; Z79.82 Long term (current) use of aspirin; Z79.899 Other long term (current) drug therapy; Z98.890 Other specified postprocedural states; Z91.81 History of falling
CPT/HCPCS: 36415; 80048; 80053; 82140; 82565; 83935; 84300; 85014; 85018; 85025; 85049; J1650; U0003; U0005